=== PATIENT | female | born 2000 | race American Indian/Alaskan Native ===

== ENCOUNTER 2021-10-18 12:38 | Emergency (ER) | payer MEDICAID ==
[2021-10-18] MEDS ORDERED: ONDANSETRON 4 MG/2 ML INJ IV ONE (13:26)
[2021-10-18] MEDS ORDERED: SODIUM CHLORIDE 0.9% 1000 ML 1,000 ML IV ONE (13:26)
[2021-10-18 14:31] LABS: Basophils % (Auto) 0.5 % (0.0-1.8); Eosinophils % (Auto) 0.1 % (0.0-4.3); Hematocrit 41.9 % (30.3-42.9); Hemoglobin 13.3 gm/dl (10.1-14.3); Lymphocytes # (Auto) 0.6 K/mm3 (1.2-5.4); Lymphocytes % (Auto) 8.1 % (13.4-35.0); Mean Corpuscular HGB Conc 32 % (30-34); Mean Corpuscular Volume 91 fl (79-97); Monocytes # (Auto) 0.2 K/mm3 (0.0-0.8); Platelet Count 276 K/mm3 (140-440); Red Blood Count 4.59 M/mm3 (3.65-5.03); Red Cell Distribution Width 13.9 % (13.2-15.2)
[2021-10-18 14:48] LABS: Alanine Aminotransferase 15 units/L (7-56); BUN/Creatinine Ratio 9; Blood Urea Nitrogen 7 mg/dL (7-17); Calcium 9.9 mg/dL (8.4-10.2); Hemolysis Index 1
[2021-10-18] MEDS ORDERED: METOCLOPRAMIDE 10 MG/2 ML INJ IV ONE (17:01)
[2021-10-18] MEDS ORDERED: MORPHINE 4 MG/1 ML INJ IV ONE (17:01)
[2021-10-18] MEDS ORDERED: diphenhydrAMINE 50 MG/ML VIAL IV ONE (17:01)
[2021-10-18] MEDS ORDERED: FAMOTIDINE 20 MG/2 ML INJ IV ONE (17:01)
[2021-10-18 18:11] LABS: Bilirubin,Urine Negative (Negative); Blood,Urine Negative (Negative); Color,Urine Yellow (Yellow)
[2021-10-18 18:12] LABS: Bacteria,Urine 1+ /HPF (Negative); Epithelial Casts,Urine 2 /HPF; RBC,Urine < 1.0 /HPF (0.0-6.0); Urobilinogen,Urine < 2.0 mg/dL (<2.0); WBC,Urine < 1.0 /HPF (0.0-6.0)
--- NOTE | 2021-10-18 18:20 | Emergency Department Report ---
ED N/V/D HPI - General Chief complaint: Abdominal Pain Stated complaint: ABD PAIN/VOMITING Source: patient Mode of arrival: Ambulatory Limitations: No Limitations - History of Present Illness Initial comments: Patient is a 21-year-old -[place] female with history of asthma who presents to the ED with complaint of acute onset persistent epigastric pain, intractable nausea and vomiting for the last 12 hours. Patient states that the she has now been able to keep anything down in the last 12 hours because of intractable nausea and vomiting. Patient states that the pain in the epigastric area expanding sensation which has been constant and persistent and worse with v omiting. Patient states that no one else at home is had similar symptoms. Patient denies hematemesis, dizziness, syncope, diarrhea, dysuria, urinary frequency and urgency, headache, lightheadedness, chest pain or shortness of breath, fever and chills. MD complaint: nausea, vomiting, abdominal pain (Epigastric pain) -: Sudden, hour(s) (12) Description of Vomiting: food contents, watery, bilious Associated Abdominal Pain: Yes (Epigastric pain) Location: epigastric Radiation: none Severity: moderate Pain Scale: 6 Quality: cramping, sharp Consistency: constant Improves with: none Worsens with: eating, vomiting Context: possible food poisoning Associated Symptoms: denies other symptoms, loss of appetite, nausea/vomiting. denies: myalgias, chest pain, cough, diaphoresis, fever/chills, headaches, malaise, rash, dysuria, shortness of breath, syncope, weakness, other - Related Data Previous Rx's Medication Instructions Recorded Last Taken Type Dicyclomine [Bentyl] 20 mg PO Q6H PRN #30 tablet 10/18/21 Unknown Rx Famotidine [Pepcid] 20 mg PO BID #60 tablet 10/18/21 Unknown Rx Ondansetron [Zofran Odt] 4 mg PO Q8HR PRN #20 tab.rapdis 10/18/21 Unknown Rx Allergies Allergy/AdvReac Type Severity Reaction Status Date / Time No Known Allergies Allergy Unverified 10/18/21 13:26 ED Review of Systems ROS: Stated complaint: ABD PAIN/VOMITING Other details as noted in HPI Constitutional: denies: chills, fever Eyes: denies: eye pain, eye discharge, vision change ENT: denies: ear pain, throat pain Respiratory: denies: cough, shortness of breath, wheezing Cardiovascular: denies: chest pain, palpitations Endocrine: no symptoms reported Gastrointestinal: abdominal pain (Mild epigastric pain), nausea, vomiting. denies: diarrhea, constipation, hematemesis, melena Genitourinary: denies: urgency, dysuria, discharge Musculoskeletal: denies: back pain, joint swelling, arthralgia Skin: denies: rash, lesions Neurological: denies: headache, weakness, paresthesias Psychiatric: denies: anxiety, depression Hematological/Lymphatic: denies: easy bleeding, easy bruising ED Past Medical Hx - Past Medical History Previous Medical History?: Yes Hx Asthma: Yes - Surgical History Past Surgical History?: No - Social History Smoking Status: Never Smoker - Medications Home Medications: Home Medications Medication Instructions Recorded Confirmed Last Taken Type Dicyclomine [Bentyl] 20 mg PO Q6H PRN #30 tablet 10/18/21 Unknown Rx Famotidine [Pepcid] 20 mg PO BID #60 tablet 10/18/21 Unknown Rx Ondansetron [Zofran Odt] 4 mg PO Q8HR PRN #20 tab.rapdis 10/18/21 Unknown Rx ED Physical Exam - General Limitations: No Limitations General appearance: alert, in no apparent distress - Head Head exam: Present: atraumatic, normocephalic, normal inspection - Eye Eye exam: Present: normal appearance, PERRL, EOMI Pupils: Present: normal accommodation - ENT ENT exam: Present: normal exam, normal orophraynx, mucous membranes moist, TM's normal bilaterally, normal external ear exam - Neck Neck exam: Present: normal inspection, full ROM. Absent: tenderness - Respiratory Respiratory exam: Present: normal lung sounds bilaterally. Absent: respiratory distress, wheezes, rales, rhonchi, stridor, chest wall tenderness, accessory muscle use, decreased breath sounds, prolonged expiratory - Cardiovascular Cardiovascular Exam: Present: regular rate, normal rhythm, normal heart sounds. Absent: systolic murmur, diastolic murmur, rubs, gallop - GI/Abdominal GI/Abdominal exam: Present: soft, normal bowel sounds. Absent: tenderness, guarding, rebound, hyperactive bowel sounds, hypoactive bowel sounds, organomegaly, mass, bruit - Extremities Exam Extremities exam: Present: normal inspection, full ROM, normal capillary refill - Back Exam Back exam: Present: normal inspection, full ROM. Absent: tenderness, CVA tenderness (R), CVA tenderness (L), muscle spasm, paraspinal tenderness, vertebral tenderness - Neurological Exam Neurological exam: Present: alert, oriented X3, CN II-XII intact, normal gait, reflexes normal - Psychiatric Psychiatric exam: Present: normal affect, normal mood - Skin Skin exam: Present: warm, dry, intact, normal color. Absent: rash ED Course Vital Signs 10/18/21 13:24 Temperature 98.7 F Pulse Rate 80 Respiratory 18 Rate Blood Pressure 134/66 O2 Sat by Pulse 99 Oximetry ED Medical Decision Making - Lab Data Result diagrams: 10/18/21 14:12 10/18/21 14:12 - Medical Decision Making There is is a 21-year-old -[place] female with history of asthma who presents to the ED with complaint of acute onset persistent epigastric pain, intractable nausea and vomiting for the last 12 hours. Patient states that the she has now been able to keep anything down in the last 12 hours because of in tractable nausea and vomiting. Patient states that the pain in the epigastric area expanding sensation which has been constant and persistent and worse with vomiting. Patient states that no one else at home is had similar symptoms. In the ED, patient is alert and oriented x3 and is not in any distress. Patient is hemodynamically stable. Lab test results were reviewed and are all nonactionable. Patient was treated for nausea and vomiting, given antacids and pain medications. Patient also received normal saline 1 L IV bolus x1. On reevaluation, patient passed oral fluid challenge in the ED. Patient will discharge home on medications and advised to follow-up with her primary care physician in 5 to 7 days for reevaluation. Patient was also advised to maintain a clear liquid diet for 12 to 24 hours. Patient was advised to return to the ED immediately if symptoms get worse. - Differential Diagnosis Viral gastroenteritis; GERD; dehydration; ; UTI; gastritis Critical care attestation.: If time is entered above; I have spent that time in minutes in the direct care of this critically ill patient, excluding procedure time. ED Disposition Clinical Impression: Nausea and vomiting in adult patient, Acute epigastric pain, Viral gastroenteritis GERD (gastroesophageal reflux disease) Qualifiers: Esophagitis presence: esophagitis presence not specified Qualified Code(s): K21.9 - Gastro-esophageal reflux disease without esophagitis Disposition: HOME / SELF CARE / HOMELESS Is pt being admited?: No Does the pt Need Aspirin: No Condition: Stable Instructions: Abdominal Pain (ED), Abdominal Pain, Adult, [id number], Heartburn, [id number], Gastroesophageal Reflux Disease, Adult, [id number], Nausea and Vomiting, Adult, [id number], Viral Gastroenteritis, Adult, Easy-to- Read Additional Instructions: All lab test results were reviewed and are all nonactionable. Therefore maintain a clear liquid diet for 12 to 24 hours, take medications as advised for nausea and vomiting and pain and antacid. Follow-up with your primary care physician in 5 to 7 days for reevaluation. Return to the ED immediately if symptoms get worse. Prescriptions: Dicyclomine [Bentyl] 20 mg PO Q6H PRN #30 tablet PRN Reason: Abdominal pain Famotidine [Pepcid] 20 mg PO BID #60 tablet Ondansetron [Zofran Odt] 4 mg PO Q8HR PRN #20 tab.rapdis PRN Reason: Nausea Referrals: [facility] [Provider Group] - 3-5 Days Forms: Work/School Release Form(ED) Time of Disposition: 18:28 Print Language: TRISTANIAN
[2021-10-18 18:49] VITALS: BP 134/62
== END 2021-10-18 18:48 | disposition home or self-care (01) ==
LOC: ED 12:38
DX: A08.4 Viral intestinal infection, unspecified (principal); R10.13 Epigastric pain; R11.2 Nausea with vomiting, unspecified; J45.909 Unspecified asthma, uncomplicated
CPT/HCPCS: 36415; 80053; 81001; 84702; 85025; 96361; 96374; 96375; 99283; J1200; J2270; J2405; J7030